=== PATIENT | male | born 1950 | race Caucasian/White ===

== ENCOUNTER 2023-04-03 04:02 | Inpatient (IN) ==
--- NOTE | 2023-04-03 06:59 | Emergency Department Note ---
History of Present Illness General Chief complaint: Dizziness Stated complaint: LIGHTHEADED Time Seen by Provider: 04/03/23 06:20 History of Present Illness 72-year-old male presents emergency department with a 1 day history of lightheadedness that started around lunchtime according to the patient. Patient states that he is lightheaded he does not state that the room is spinning he has no vertiginous symptoms he has no decrease in hearing he has no ringing in his ears does not state it worsens with movement. Patient reportedly had a headache at the time. According to family who are at bedside he was complaining that he had a headache he was lightheaded. Patient denied any chest pain shortness of breath abdominal pain nausea vomiting. Reportedly he had urinary frequency. Family had checked him last night for strokelike symptoms. Patient denies any slurred speech blurred vision. Reportedly he was having problems concentrating and thought it was 1965. This is reportedly a change according to family at bedside. He is reportedly not on blood thinners. Currently his general complaint is lightheadedness with no specificity to it Home Medications Medication Instructions Recorded Confirmed Type finasteride 5 mg tablet (Proscar) 5 mg PO QAM 03/23/21 05/18/21 History lisinopril 5 mg tablet (Zestril) 5 mg PO QAM 03/23/21 05/18/21 History metformin 750 mg tablet,extended 1,500 mg PO QAM 03/23/21 05/18/21 History release 24 hr tamsulosin 0.4 mg capsule (Flomax) 0.4 mg PO QAM 03/23/21 05/18/21 History Nexium 10 mg PO QAM 04/03/23 04/03/23 History empagliflozin 10 mg tablet 10 mg PO QAM 04/03/23 04/03/23 History (Jardiance) glipizide 5 mg tablet, extended 5 mg PO QAM 04/03/23 04/03/23 History release 24 hr Allergies Allergy/AdvReac Type Severity Reaction Status Date / Time No Known Allergies Allergy Unverified 03/23/21 13:05 Past Med/Surg History Medical History Hypertension Indwelling Daniels catheter present No pertinent family history Surgical History No pertinent past surgical history Social History Smoking Status: Never smoker Tobacco Type: Smokeless Tobacco (Dip or Chew) Preferred Language: Slovak Feels Safe at Home: Yes Review of Systems A total of 10 systems reviewed and were otherwise negative Cardiovascular: no chest pain Gastrointestinal: no abdominal pain Neurologic: + dizziness Physical Exam Vital Signs Vital Signs - 24 hr 04/03/23 04:04 04/03/23 05:02 04/03/23 05:24 Temperature 36.8 C Temperature Source Temporal Artery Scan Pulse Rate 120 H 99 H Pulse Rhythm Regular Respiratory Rate 18 20 Blood Pressure 121/73 Blood Pressure Mean 89 Pulse Oximetry 96 91 Oxygen Delivery Method Room Air Room Air Room Air Sepsis Recent Fever Within 48 Hours No Sepsis New/Unexplained Change in Mental Status No Sepsis Action Taken by Nursing No Action Required 04/03/23 06:27 04/03/23 06:29 Temperature Temperature Source Pulse Rate 99 H Pulse Rhythm Respiratory Rate Blood Pressure Blood Pressure Mean Pulse Oximetry 94 Oxygen Delivery Method Room Air Sepsis Recent Fever Within 48 Hours Sepsis New/Unexplained Change in Mental Status Sepsis Action Taken by Nursing GENERAL: Patient is awake alert in no acute distress patient is resting comfortably and showing no signs of anxiety EYES: The conjunctivae are clear. The pupils are round and reactive. Head exam reveals normocephalic atraumatic EARS, NOSE, MOUTH AND THROAT: The nose is without any evidence of any deformity. Mucous membranes are moist. Tongue is midline. NECK: The neck is nontender and supple. RESPIRATORY: Normal respiratory effort is noted there is no evidence of wheezing rhonchi or rales CARDIOVASCULAR: Regular rate and rhythm noted there no murmurs rubs or gallops normal S1 normal S2. GASTROINTESTINAL: The abdomen is soft. Abdomen is nontender. BACK: No midline tenderness or or step-off noted range of motion in flexion extension as well as rotation no signs of muscle spasm noted MUSCULOSKELETAL/EXTREMITIES: There is no evidence of gross deformity full range of motion is noted in the hips and shoulders. SKIN: There is no obvious evidence of any rash. There are no petechiae, pallor or cyanosis noted. NEUROLOGIC: Patient is awake alert and oriented x3 strength is symmetric; GCS of 15, NIH of 0; patient has normal speech and no facial droop, was ambulatory to the bathroom Course Reevaluation(s) Reevaluation #1: Patient was extremely dizzy and had an ataxic gait when he was ambulated by the nursing staff. I discussed evaluation with the patient the patient's son at bedside. The son states that the patient lives alone has a walker and a cane at home but does not use it. He believes that he would fall if he were discharged to home. Time: 10:15 Consultations Consultation #1: Case was discussed with the [facility] hospitalist for admission Time: 10:15 Administered Medications Discontinued Medications Ioversol (Optiray 320 500ml) 115 ml IV ONCE ONE Stop: 04/03/23 09:00 Last Admin: 04/03/23 08:59 Dose: 115 ml Documented By: RICKY Medical Decision Making Medical Records Attestation: I reviewed the patient's medical records. Home Medications Current Medication List: was personally reviewed by me Laboratory Data Attestation: I reviewed the patient's lab results. Labs interpreted by me are unremarkable 04/03/23 06:20 04/03/23 06:20 Lab Results 04/03/23 04/03/23 04/03/23 Range/Units 06:20 06:20 06:20 WBC 9.41 (4.8-10.8) K/ul RBC 5.82 (4.70-6.10) M/uL Hgb 16.8 (14.0-18.0) g/dl Hct 49.2 (42.0-52.0) % MCV 84.5 (80.0-100.0) fL MCH 28.9 (25.0-34.0) pg MCHC 34.1 (32.0-36.0) g/dL RDW Std Deviation 39.7 (36.4-46.3) fL RDW Coeff of Dk 12.9 (11.5-14.5) % Plt Count 237 (130-400) K/uL MPV 9.9 (9.4-12.4) fL Immature Gran % (Auto) 0.5 % Neut % (Auto) 82.5 % Lymph % (Auto) 5.2 % [place] % (Auto) 11.4 % Eos % (Auto) 0.0 % Baso % (Auto) 0.4 % Neut # (Auto) 7.76 H (1.40-6.50) K/uL Lymph # (Auto) 0.49 L (1.20-3.40) K/uL Brantley # (Auto) 1.07 H (0.11-0.59) K/uL Eos # (Auto) 0.00 (0.00-0.50) K/uL Baso # (Auto) 0.04 (0.00-0.20) K/uL Immature Gran # (Auto) 0.05 (0.01-0.20) K/uL PT (9.0-12.0) Seconds INR (0.9-1.1) Sodium 135 L (136-145) mmol/L Potassium 4.1 (3.5-5.1) mmol/L Chloride 101 (98-107) mmol/L Carbon Dioxide 25 (21-32) mmol/L Anion Gap 9 (3-11) BUN 12 (6-23) mg/dl Creatinine 1.01 (0.6-1.4) mg/dl Est Cr Clr Drug Dosing 66.6 ml/min Est GFR ( Amer) 84.5 ml/min Est GFR (Non-Af Amer) 72.9 ml/min BUN/Creatinine Ratio 11.9 (10-20) Glucose 207 H (70-99(Fasting)) mg/dl Lactate (0.4-2.0) mmol/L Calcium 9.0 (8.6-10.3) mg/dl Magnesium 1.8 (1.7-2.4) mg/dl Total Bilirubin 1.3 H (0.2-1.0) mg/dl AST 23 (13-39) U/L ALT 23 (7-52) U/L Alkaline Phosphatase 46 (34-104) U/L Troponin I High Sens (0-20) pg/ml Total Protein 6.9 (6.0-8.3) gm/dl Albumin 3.9 (3.4-5.0) gm/dl Globulin 3.0 (2.5-4.0) gm/dl Albumin/Globulin Ratio 1.3 (0.9-2) Procalcitonin 0.16 (0-0.5) ng/ml Urine Color Urine Appearance (Clear) Urine pH (4.5-7.5) Ur Specific [place] (1.000-1.030) Urine Protein (Negative) Urine Glucose (UA) (Negative) Urine Ketones (Negative) Urine Blood (Negative) Urine Nitrite (Negative) Urine Bilirubin (Negative) Urine Urobilinogen (Negative) Ur Leukocyte Esterase (Negative) Urine WBC (Auto) (0-5) /hpf Urine RBC (Auto) (0-4) /hpf U Hyaline Cast (Auto) (0-5) /lpf U Epithel Cells (Auto) (0-5) /lpf Urine Bacteria (Auto) (Negative) SARS-CoV-2, RNA, NAAT (NEGATIVE) 04/03/23 04/03/23 04/03/23 Range/Units 06:45 07:09 07:21 WBC (4.8-10.8) K/ul RBC (4.70-6.10) M/uL Hgb (14.0-18.0) g/dl Hct (42.0-52.0) % MCV (80.0-100.0) fL MCH (25.0-34.0) pg MCHC (32.0-36.0) g/dL RDW Std Deviation (36.4-46.3) fL RDW Coeff of Dk (11.5-14.5) % Plt Count (130-400) K/uL MPV (9.4-12.4) fL Immature Gran % (Auto) % Neut % (Auto) % Lymph % (Auto) % Brant[place] % (Auto) % Eos % (Auto) % Baso % (Auto) % Neut # (Auto) (1.40-6.50) K/uL Lymph # (Auto) (1.20-3.40) K/uL Br[place]ley # (Auto) (0.11-0.59) K/uL Eos # (Auto) (0.00-0.50) K/uL Baso # (Auto) (0.00-0.20) K/uL Immature Gran # (Auto) (0.01-0.20) K/uL PT 11.3 (9.0-12.0) Seconds INR 1.0 (0.9-1.1) Sodium (136-145) mmol/L Potassium (3.5-5.1) mmol/L Chloride (98-107) mmol/L Carbon Dioxide (21-32) mmol/L Anion Gap (3-11) BUN (6-23) mg/dl Creatinine (0.6-1.4) mg/dl Est Cr Clr Drug Dosing ml/min Est GFR ( Amer) ml/min Est GFR (Non-Af Amer) ml/min BUN/Creatinine Ratio (10-20) Glucose (70-99(Fasting)) mg/dl Lactate (0.4-2.0) mmol/L Calcium (8.6-10.3) mg/dl Magnesium (1.7-2.4) mg/dl Total Bilirubin (0.2-1.0) mg/dl AST (13-39) U/L ALT (7-52) U/L Alkaline Phosphatase (34-104) U/L Troponin I High Sens (0-20) pg/ml Total Protein (6.0-8.3) gm/dl Albumin (3.4-5.0) gm/dl Globulin (2.5-4.0) gm/dl Albumin/Globulin Ratio (0.9-2) Procalcitonin (0-0.5) ng/ml Urine Color Yellow Urine Appearance Clear (Clear) Urine pH 5.0 (4.5-7.5) Ur Specific [place] 1.022 (1.000-1.030) Urine Protein Trace H (Negative) Urine Glucose (UA) 2+ H (Negative) Urine Ketones 1+ H (Negative) Urine Blood Trace H (Negative) Urine Nitrite Negative (Negative) Urine Bilirubin Negative (Negative) Urine Urobilinogen Negative (Negative) Ur Leukocyte Esterase Negative (Negative) Urine WBC (Auto) 1-5 (0-5) /hpf Urine RBC (Auto) 0-4 (0-4) /hpf U Hyaline Cast (Auto) 1-5 (0-5) /lpf U Epithel Cells (Auto) 10-20 H (0-5) /lpf Urine Bacteria (Auto) Negative (Negative) SARS-CoV-2, RNA, NAAT NEGATIVE (NEGATIVE) 04/03/23 04/03/23 Range/Units 07:21 07:26 WBC (4.8-10.8) K/ul RBC (4.70-6.10) M/uL Hgb (14.0-18.0) g/dl Hct (42.0-52.0) % MCV (80.0-100.0) fL MCH (25.0-34.0) pg MCHC (32.0-36.0) g/dL RDW Std Deviation (36.4-46.3) fL RDW Coeff of Dk (11.5-14.5) % Plt Count (130-400) K/uL MPV (9.4-12.4) fL Immature Gran % (Auto) % Neut % (Auto) % Lymph % (Auto) % Br[place] % (Auto) % Eos % (Auto) % Baso % (Auto) % Neut # (Auto) (1.40-6.50) K/uL Lymph # (Auto) (1.20-3.40) K/uL [place] # (Auto) (0.11-0.59) K/uL Eos # (Auto) (0.00-0.50) K/uL Baso # (Auto) (0.00-0.20) K/uL Immature Gran # (Auto) (0.01-0.20) K/uL PT (9.0-12.0) Seconds INR (0.9-1.1) Sodium (136-145) mmol/L Potassium (3.5-5.1) mmol/L Chloride (98-107) mmol/L Carbon Dioxide (21-32) mmol/L Anion Gap (3-11) BUN (6-23) mg/dl Creatinine (0.6-1.4) mg/dl Est Cr Clr Drug Dosing ml/min Est GFR ( Amer) ml/min Est GFR (Non-Af Amer) ml/min BUN/Creatinine Ratio (10-20) Glucose (70-99(Fasting)) mg/dl Lactate 1.7 (0.4-2.0) mmol/L Calcium (8.6-10.3) mg/dl Magnesium (1.7-2.4) mg/dl Total Bilirubin (0.2-1.0) mg/dl AST (13-39) U/L ALT (7-52) U/L Alkaline Phosphatase (34-104) U/L Troponin I High Sens 4.8 (0-20) pg/ml Total Protein (6.0-8.3) gm/dl Albumin (3.4-5.0) gm/dl Globulin (2.5-4.0) gm/dl Albumin/Globulin Ratio (0.9-2) Procalcitonin (0-0.5) ng/ml Urine Color Urine Appearance (Clear) Urine pH (4.5-7.5) Ur Specific [place] (1.000-1.030) Urine Protein (Negative) Urine Glucose (UA) (Negative) Urine Ketones (Negative) Urine Blood (Negative) Urine Nitrite (Negative) Urine Bilirubin (Negative) Urine Urobilinogen (Negative) Ur Leukocyte Esterase (Negative) Urine WBC (Auto) (0-5) /hpf Urine RBC (Auto) (0-4) /hpf U Hyaline Cast (Auto) (0-5) /lpf U Epithel Cells (Auto) (0-5) /lpf Urine Bacteria (Auto) (Negative) SARS-CoV-2, RNA, NAAT (NEGATIVE) Imaging Data Attestation: I personally reviewed and interpreted this imaging study as fol lows: My Impression: Chest x-ray interpreted by me negative for infiltrate Radiologist's Impression: Chest X-Ray 04/03/23 06:22 XR chest 1V portable CLINICAL HISTORY: Sepsis. COMPARISON STUDY: Chest radiograph March 23, 2021. FINDINGS: There is no pneumothorax or pleural effusion. Moderate cardiomegaly is unchanged. There is pulmonary vascular congestion without overt pulmonary edema. There is no consolidation to suggest pneumonia. IMPRESSION: Cardiomegaly with pulmonary vascular congestion. ACT 112: Negative or not required by law. Electronically signed by: Antonio Her M.D. 04/03/2023 7:[address] 04/03/23 06:22 CT OF THE HEAD WITHOUT CONTRAST CLINICAL HISTORY: Altered mental status. COMPARISON STUDY: Head CT January 05, 2021. TECHNIQUE: Helical axial images of the head were obtained without IV contrast. Automated exposure control was utilized for the study. A dose lowering technique was utilized adhering to the principles of ALARA. FINDINGS: No acute intracranial hemorrhage, midline shift or mass effect is present. The ventricular system is unremarkable. The basal cisterns are patent. No extra-axial collections are present. There are no findings to suggest acute dural sinus thrombosis or acute territorial infarct. No significant calvarial abnormalities are present. Visualized portions of the sinuses and mastoid air cells are clear. IMPRESSION: No acute intracranial findings. No change in appearance of the brain. ACT 112: Negative or not required by law. Electronically signed by: Antonio Her M.D. 04/03/2023 9:29 AM Head CTA 04/03/23 06:48 CTA ANGIOGRAPHY OF THE HEAD CLINICAL HISTORY: Lightheadedness. Dizziness. Possible stroke. COMPARISON STUDY: Head CT January 05, 2021. TECHNIQUE: Helical axial images of the head were obtained following uneventful intravenous administration of 115 cc of Optiray. Sagittal and coronal reconstructions were viewed as well as maximal intensity projections on an independent 3-D workstation. Automated exposure control was utilized for the study. A dose lowering technique was utilized adhering to the principles of ALARA. CT DOSE: 1465.5 mGy.cm FINDINGS: No acute intracranial hemorrhage is identified on the head CT which will be reported separately. The ventricular system is stable. Basal cisterns are patent. There are no extra-axial collections. The bilateral M1, M2, A1 and A2 segments are patent. The posterior circulation is also intact. There is no intracranial aneurysm or dissection. IMPRESSION: Unremarkable CTA of the head. ACT 112: Negative or not required by law. Electronically signed by: Antonio Her M.D. 04/03/2023 9:35 AM Neck CTA 04/03/23 06:48 CT angio neck with con CLINICAL HISTORY: 72 years-old Male with stroke. Acute strokelike symptoms COMPARISON STUDY: CTA head of same day TECHNIQUE: Following the IV administration of 115 cc of Optiray, CT angiogram of the neck was performed from the aortic arch to the skull base. Images are reviewed in the axial, sagittal, and coronal planes. 3-D MIPS images are created and assessed. IV contrast was administered without complication. All measurements were calculated based on NASCET criteria. A dose lowering technique was utilized adhering to the principles of ALARA. FINDINGS: Unremarkable appearance of the imaged thoracic aortic arch. Patency of the innominate and imaged subclavian arteries. Patent common and internal carotid arteries without significant atherosclerosis. The vertebral arteries are codominant and widely patent. No aneurysm, dissection, high-grade stenosis or arterial occlusion. The imaged intracranial structures demonstrate no acute abnormality. Soft tissues are within normal limits. 1.3 cm groundglass nodule of the right upper lobe on image 7 series 8. No pneumothorax. Degenerative changes of the cervical spine. No acute fracture. IMPRESSION: 1. Unremarkable CTA of the neck. 2. 1.3 cm right upper lobe groundglass nodule. Six-month follow-up chest CT recommended. Please refer to below summary of Fleischner criteria recommendations for follow- up of incidental CT nodules (Rosa M Vicente, Guidelines for management of small pulmonary nodules detected on CT scans: A statement from the Fleischner Society, Radiology 237: [phone].) Note: newly detected indeterminate nodule in persons 35 years of age or older. * Low risk patients: minimal or absent history of smoking and/or other known r isk factors * high risk patients: history of smoking or of other known risk factors (e.g. first degree relative with lung cancer, or exposure to asbestos, radon, uranium) * if a nodule up to 8 mm is partly solid or is ground glass further follow-up is required after 24 months to exclude possible slow growing adenocarcinoma (MALIKA) SUBSOLID NODULES Solitary pure ground-glass nodule * nodule size <6 mm - no CT follow-up required * nodule size >=6 mm - follow-up CT at 6-12 months, then every 2 years until 5 years * ACT 112: Positive. There are findings on this exam that require communication between the performing entity and the patient following Patient Test Result Information Act ([place] Act 112) guidelines. The above report was generated using voice recognition software. It may contain grammatical, syntax or spelling errors. Electronically signed by: Fawad Barajas M.D. 04/03/2023 9:28 AM ECG Data Attestation: I personally reviewed and interpreted this ECG as follows: Additional Comments: EKG interpreted by me sinus rhythm rate of 100, PACs, no obvious ST segment elevation or depression, normal axis, normal intervals Telemetry was ordered by me, interpreted as normal sinus rhythm rate of 98 MDM Narrative Medical decision making differential diagnosis includes TIA, CVA, intracranial hemorrhage, metabolic derangement, dehydration, cardiac dysrhythmia, urinary tract infection, sepsis Plan is to check labs, EKG, CT angios of the brain and neck Patient's son is at bedside and provided me medical history as to his complaint yesterday of dizziness and headache and being off balance at times Patient is currently ataxic on ambulation trial. Case was discussed with the son, the case was discussed with the [facility] hospitalist for admission Impression & Plan Dizziness Discharge Plan Visit Data Chief Complaint: Dizziness Stated Complaint: LIGHTHEADED ED Provider: Jarek Birch Discharge Problem: Dizziness Patient Disposition: Admitted As Inpatient Forms Stand Alone Forms: My [facility] Prescriptions Prescriptions: No Action tamsulosin [Flomax] 0.4 mg capsule 0.4 mg PO QAM glimepiride [Amaryl] 4 mg tablet 4 mg PO QAM lisinopril [Zestril] 5 mg tablet 5 mg PO QAM finasteride [Proscar] 5 mg tablet 5 mg PO QAM metformin 750 mg tablet extended release 24 hr 1,500 mg PO QAM Referrals Referrals: Alberto Sheets MD [Primary Care Provider] -
[2023-04-03 07:02] LABS: Albumin Globulin Ratio 1.3 (0.9-2); Albumin Level 3.9 gm/dl (3.4-5.0); BUN Creatinine Ratio 11.9 (10-20); Bilirubin,Total 1.3 mg/dl (0.2-1.0); Creatinine Clr Calc Pharmacy 66.6 ml/min; Est GFR (African American) 84.5 ml/min; Est GFR (Non-African American) 72.9 ml/min; Magnesium 1.8 mg/dl (1.7-2.4); Potassium 4.1 mmol/L (3.5-5.1); Total Protein 6.9 gm/dl (6.0-8.3)
--- NOTE | 2023-04-03 07:07 | XRay Report ---
XR chest 1V portable CLINICAL HISTORY: Sepsis. COMPARISON STUDY: Chest radiograph March 23, 2021. FINDINGS: There is no pneumothorax or pleural effusion. Moderate cardiomegaly is unchanged. There is pulmonary vascular congestion without overt pulmonary edema. There is no consolidation to suggest pne umonia. IMPRESSION: Cardiomegaly with pulmonary vascular congestion. ACT 112: Negative or not required by law. Electronically signed by: Antonio Her M.D. 04/03/2023 7:06 AM
[2023-04-03 08:12] LABS: Basophils # (auto) 0.04 K/uL (0.00-0.20); Basophils % (auto) 0.4 %; Hematocrit (blood only) 49.2 % (42.0-52.0); Hemoglobin 16.8 g/dl (14.0-18.0); Immature Granulocytes # (auto) 0.05 K/uL (0.01-0.20); Immature Granulocytes % (auto) 0.5 %; Lymphocytes # (auto) 0.49 K/uL (1.20-3.40); Lymphocytes % (auto) 5.2 %; Mean Corpuscular Hemoglobin 28.9 pg (25.0-34.0); Mean Corpuscular Hgb Conc 34.1 g/dL (32.0-36.0); Mean Corpuscular Volume 84.5 fL (80.0-100.0); Mean Platelet Volume 9.9 fL (9.4-12.4); Monocytes # (auto) 1.07 K/uL (0.11-0.59); Monocytes % (auto) 11.4 %; Neutrophils # (auto) 7.76 K/uL (1.40-6.50); Neutrophils % (auto) 82.5 %; Platelet Count 237 K/uL (130-400); RDW Coefficient of Variation 12.9 % (11.5-14.5); RDW Standard Deviation 39.7 fL (36.4-46.3); Red Blood Count 5.82 M/uL (4.70-6.10); White Blood Count 9.41 K/ul (4.8-10.8)
[2023-04-03 08:14] LABS: Prothrombin Time 11.3 Seconds (9.0-12.0)
[2023-04-03 08:49] LABS: Appearance Urine Clear (Clear); Bacteria Urine Automated Negative (Negative); Bilirubin Urine Negative (Negative); Blood Urine Trace (Negative); Color Urine Yellow; Glucose Urine UA 2+ (Negative); Ketones Urine 1+ (Negative); Leukocyte Esterase Urine Negative (Negative); Nitrite Urine Negative (Negative); Protein Urine Trace (Negative); RBC Urine Automated 0-4 /hpf (0-4); Specific Gravity Urine 1.022 (1.000-1.030); Urobilinogen Urine Negative (Negative)
[2023-04-03] MEDS ORDERED: OPTIRAY 320 500ml IV ONE (08:59)
--- NOTE | 2023-04-03 09:30 | CT Scan Report ---
CT angio neck with con CLINICAL HISTORY: 72 years-old Male with stroke. Acute strokelike symptoms COMPARISON STUDY: CTA head of same day TECHNIQUE: Following the IV administration of 115 cc of Optiray, CT angiogram of the neck was perform ed from the aortic arch to the skull base. Images are reviewed in the axial, sagittal, and coronal pl anes. 3-D MIPS images are created and assessed. IV contrast was administered without complication. Al l measurements were calculated based on NASCET criteria. A dose lowering technique was utilized adhe ring to the principles of ALARA. FINDINGS: Unremarkable appearance of the imaged thoracic aortic arch. Patency of the innominate and imaged subc lavian arteries. Patent common and internal carotid arteries without significant atherosclerosis. The vertebral arteries are codominant and widely patent. No aneurysm, dissection, high-grade stenosis or arterial occlusion. The imaged intracranial structures demonstrate no acute abnormality. Soft tissues are within normal l imits. 1.3 cm groundglass nodule of the right upper lobe on image 7 series 8. No pneumothorax. Degene rative changes of the cervical spine. No acute fracture. IMPRESSION: 1. Unremarkable CTA of the neck. 2. 1.3 cm right upper lobe groundglass nodule. Six-month follow-up chest CT recommended. Please refer to below summary of Fleischner criteria recommendations for follow-up of incidental CT n odules (Rosa M Vicente, Guidelines for management of small pulmonary nodules detected on CT scans: A sta tement from the Fleischner Society, Radiology 237: [phone].) Note: newly detected indeterminate nodule in persons 35 years of age or older. * Low risk patients: minimal or absent history of smoking and/or other known risk factors * high risk patients: history of smoking or of other known risk factors (e.g. first degree relative with lung cancer, or exposure to asbestos, radon, uranium) * if a nodule up to 8 mm is partly solid or is ground glass further follow-up is required after 24 m onths to exclude possible slow growing adenocarcinoma (MALIKA) SUBSOLID NODULES Solitary pure ground-glass nodule * nodule size <6 mm - no CT follow-up required * nodule size >=6 mm - follow-up CT at 6-12 months, then every 2 years until 5 years * ACT 112: Positive. There are findings on this exam that require communication between the performing entity and the patient following Patient Test Result Information Act ([place] Act 112) guidelines. The above report was generated using voice recognition software. It may contain grammatical, syntax o r spelling errors. Electronically signed by: Fawad Barajas M.D. 04/03/2023 9:28 AM
--- NOTE | 2023-04-03 09:30 | CT Scan Report ---
CT OF THE HEAD WITHOUT CONTRAST CLINICAL HISTORY: Altered mental status. COMPARISON STUDY: Head CT January 05, 2021. TECHNIQUE: Helical axial images of the head were obtained without IV contrast. Automated exposure con trol was utilized for the study. A dose lowering technique was utilized adhering to the principles o f ALARA. FINDINGS: No acute intracranial hemorrhage, midline shift or mass effect is present. The ventricular system is unremarkable. The basal cisterns are patent. No extra-axial collections are present. There are no findings to suggest acute dural sinus thrombosis or acute territorial infarct. No significant calvarial abnormalities are present. Visualized portions of the sinuses and mastoid air cells are shilpi ar. IMPRESSION: No acute intracranial findings. No change in appearance of the brain. ACT 112: Negative or not required by law. Electronically signed by: Antonio Her M.D. 04/03/2023 9:29 AM
--- NOTE | 2023-04-03 09:37 | CT Scan Report ---
CTA ANGIOGRAPHY OF THE HEAD CLINICAL HISTORY: Lightheadedness. Dizziness. Possible stroke. COMPARISON STUDY: Head CT January 05, 2021. TECHNIQUE: Helical axial images of the head were obtained following uneventful intravenous administr ation of 115 cc of Optiray. Sagittal and coronal reconstructions were viewed as well as maximal inten sity projections on an independent 3-D workstation. Automated exposure control was utilized for the study. A dose lowering technique was utilized adhering to the principles of ALARA. CT DOSE: 1465.5 mGy.cm FINDINGS: No acute intracranial hemorrhage is identified on the head CT which will be reported separa tely. The ventricular system is stable. Basal cisterns are patent. There are no extra-axial collectio ns. The bilateral M1, M2, A1 and A2 segments are patent. The posterior circulation is also intact. Th ere is no intracranial aneurysm or dissection. IMPRESSION: Unremarkable CTA of the head. ACT 112: Negative or not required by law. Electronically signed by: Antonio Her M.D. 04/03/2023 9:35 AM
--- NOTE | 2023-04-03 10:19 | History & Physical Report ---
Date of Service April 03, 2023 Assessment & Plan (1) Dizziness: Plan: -Admit to [facility] with telemetry -Stroke order set completed although not sure that this is truly a CVA at this point. It is difficult to determine due to the patient's known forthcoming demeanor if he has had progressive weakness, unsteady gait going on for longer timeframe than just yesterday. - CTA head and neck, CT head neg - Check MRI brain - Check 2D echo - Initial troponin is negative, trend one more set - Neurocognitive evaluation throughout admission with pt possible worsening memory? Speeding with driving may indicate the need to revoke license. CM to assist with dc planning and if high school social studies teacher need to be involved upon discharge to home/home health services vs. inpatient placement - PT/OT evals - A1C and lipids with am labs for completeness - Hold on addition of baby aspirin and statin per attending at this time pending MRI results (2) GERD (gastroesophageal reflux disease): Plan: - Chronic, stable - Continue PPI (3) DM II (diabetes mellitus, type II), controlled: Plan: - ISS with Accu-Cheks ACHS - Check A1c - Question if the patient is truly taking Jardiance at home per medications, he is taking 1500 mg metformin in the morning which we will hold for now with receiving contrast - Trend glucose (4) BPH (benign prostatic hyperplasia): Plan: - Hx of TURP, may continue Flomax and Proscar DVT PPx: teds, scds Lines: 2 PIV FEN/GI: Passed bedside swallow eval by myself, allow HH/diabetic diet CODE: Full code Dispo: From home, likely to remain in the hospital x 1-2 days History of Present Illness Chief Complaint: Lightheadedness Primary Care Provider: Alberto Sheets MD This is a 72-year-old male with PMHx of DM type II, HTN, GERD, TURP and BPH who presents to the ER with 1 day of lightheadedness. Pt son is at bedside and supports the history as the patient is not forthcoming with what's going on at home, son is concerned he is unable to care for himself at this point and there are memory changes. Pt thinks lightheadedness started around lunch time yesterday, and hit him all of a sudden but cannot recall what he was doing. Denies any presyncopal symptoms, and feels that since yesterday this lightheadedness has been on and off, admits to a headache as well in the frontal left region for 10-20 min yesterday but is gone at this point. Denies any changes in speech, slurring. He typically uses a cane and a walker at baseline however has been significantly unsteady at home. He lives by himself. Family is concerned that he would be unsafe going home. Son who is at bedside also reports that his sister obtains her information from the patient's girlfriend who lives with him, and there is concerned that he has had issues with driving, speeding upwards of 100 mph without realizing it at times, does not know all of his medications, has multiple bottles of pills at home, reports that he has not taken Jardiance however it was prescribed in December earlier this year. Will ask case management to offer services for when the patient is discharged versus going to rehab versus permanent placement. CT of the head, CTA head and neck are negative for strokelike findings. Family Hx: Mother - cancer, Father - Gastrointestinal disorder Social Hx: Patient initially denies tobacco use however son reminds him that he chews tobacco, patient admits to chewing 1 can of snuff daily. Denies alcohol use, denies illicit drug use. Allergies Allergy/AdvReac Type Severity Reaction Status Date / Time No Known Allergies Allergy Unverified 03/23/21 13:05 Home Medications Medication Instructions Recorded Confirmed Type finasteride 5 mg tablet (Proscar) 5 mg PO QAM 03/23/21 04/03/23 History lisinopril 5 mg tablet (Zestril) 10 mg PO QAM 03/23/21 04/03/23 History metformin 750 mg tablet,extended 1,500 mg PO QAM 03/23/21 04/03/23 History release 24 hr tamsulosin 0.4 mg capsule (Flomax) 0.4 mg PO QAM 03/23/21 04/03/23 History Nexium 10 mg PO QAM 04/03/23 04/03/23 History empagliflozin 10 mg tablet 10 mg PO QAM 04/03/23 04/03/23 History (Jardiance) glipizide 5 mg tablet, extended 5 mg PO QAM 04/03/23 04/03/23 History release 24 hr Past Med/Surg History Medical History (Updated 04/03/23 @ 10:18 by Aviva Castle PA-C) BPH (benign prostatic hyperplasia) DM II (diabetes mellitus, type II), controlled GERD (gastroesophageal reflux disease) Hypertension Indwelling Daniels catheter present No pertinent family history Surgical History (Updated 04/03/23 @ 10:18 by Aviva Castle PA-C) Hx of transurethral resection of prostate Family History (Updated 04/03/23 @ 10:18 by Aviva Castle PA-C) Mother Cancer Social History Smoking Status: Never smoker Tobacco Type: Smokeless Tobacco (Dip or Chew) Preferred Language: Frisian Feels Safe at Home: Yes Review of Systems Review of Systems: Constitutional: No fever, sweats or chills Eyes: No diplopia, no worsening or blurred vision ENT: normal hearing, no trouble swallowing Respiratory: No cough, sputum, dyspnea at rest or on exertion Cardiovascular: No chest pain, tightness or palpitations Abdomen: No pain, nausea, vomiting, diarrhea or constipation Musculoskeletal: No joint pain, calf pain, swelling Neurologic: + lightheadedness as per HPI, + unsteady gait, + uses a walker at baseline, denies weakness, numbness/tingling, Psychiatric: No anxiety or depression Skin: No rash or itch Physical Exam Physical Exam: General: awake, alert, no apparent distress, obese, white male Head: Normocephalic, atraumatic ENT: PERRL, EOMI, no pharyngeal exudate, mucous membranes moist Extremities: Normal inspection, no peripheral edema or erythema, calfs nontender to palpation Psych: Normal mood and affect, + not forthcoming with information at times but pleasant, Please refer to attending addendum for complete physical exam including neurocognitive exam. Results & Data Results & Data Vital Signs (Past 12 Hours) Vital Signs Temp Pulse Resp BP Pulse Ox O2 Del Method 04/03/23 06:29 99 H 04/03/23 06:27 94 Room Air 04/03/23 05:24 99 H 20 91 Room Air 04/03/23 05:02 Room Air 04/03/23 04:04 36.8 C 120 H 18 121/73 96 Room Air Laboratory Results 04/03/23 07:21 Aerobic Blood Culture - Pending Blood Anaerobic Blood Culture - Pending 04/03/23 07:27 Aerobic Blood Culture - Pending Blood Anaerobic Blood Culture - Pending 04/03/23 04/03/23 04/03/23 07:26 07:21 07:21 WBC RBC Hgb Hct MCV MCH MCHC RDW Std Deviation RDW Coeff of Dk Plt Count MPV Immature Gran % (Auto) Neut % (Auto) Lymph % (Auto) [place] % (Auto) Eos % (Auto) Baso % (Auto) Neut # (Auto) Lymph # (Auto) [place] # (Auto) Eos # (Auto) Baso # (Auto) Immature Gran # (Auto) PT 11.3 INR 1.0 Sodium Potassium Chloride Carbon Dioxide Anion Gap BUN Creatinine Est Cr Clr Drug Dosing Est GFR ( Amer) Est GFR (Non-Af Amer) BUN/Creatinine Ratio Glucose Lactate 1.7 Calcium Magnesium Total Bilirubin AST ALT Alkaline Phosphatase Troponin I High Sens 4.8 Total Protein Albumin Globulin Albumin/Globulin Ratio Procalcitonin Urine Color Urine Appearance Urine pH Ur Specific [place] Urine Protein Urine Glucose (UA) Urine Ketones Urine Blood Urine Nitrite Urine Bilirubin Urine Urobilinogen Ur Leukocyte Esterase Urine WBC (Auto) Urine RBC (Auto) U Hyaline Cast (Auto) U Epithel Cells (Auto) Urine Bacteria (Auto) SARS-CoV-2, RNA, NAAT 04/03/23 04/03/23 04/03/23 07:09 06:45 06:20 WBC RBC Hgb Hct MCV MCH MCHC RDW Std Deviation RDW Coeff of Dk Plt Count MPV Immature Gran % (Auto) Neut % (Auto) Lymph % (Auto) [place] % (Auto) Eos % (Auto) Baso % (Auto) Neut # (Auto) Lymph # (Auto) [place] # (Auto) Eos # (Auto) Baso # (Auto) Immature Gran # (Auto) PT INR Sodium Potassium Chloride Carbon Dioxide Anion Gap BUN Creatinine Est Cr Clr Drug Dosing Est GFR ( Amer) Est GFR (Non-Af Amer) BUN/Creatinine Ratio Glucose Lactate Calcium Magnesium Total Bilirubin AST ALT Alkaline Phosphatase Troponin I High Sens Total Protein Albumin Globulin Albumin/Globulin Ratio Procalcitonin 0.16 Urine Color Yellow Urine Appearance Clear Urine pH 5.0 Ur Specific [place] 1.022 Urine Protein Trace H Urine Glucose (UA) 2+ H Urine Ketones 1+ H Urine Blood Trace H Urine Nitrite Negative Urine Bilirubin Negative Urine Urobilinogen Negative Ur Leukocyte Esterase Negative Urine WBC (Auto) 1-5 Urine RBC (Auto) 0-4 U Hyaline Cast (Auto) 1-5 U Epithel Cells (Auto) 10-20 H Urine Bacteria (Auto) Negative SARS-CoV-2, RNA, NAAT NEGATIVE 04/03/23 04/03/23 06:20 06:20 WBC 9.41 RBC 5.82 Hgb 16.8 Hct 49.2 MCV 84.5 MCH 28.9 MCHC 34.1 RDW Std Deviation 39.7 RDW Coeff of Dk 12.9 Plt Count 237 MPV 9.9 Immature Gran % (Auto) 0.5 Neut % (Auto) 82.5 Lymph % (Auto) 5.2 [place] % (Auto) 11.4 Eos % (Auto) 0.0 Baso % (Auto) 0.4 Neut # (Auto) 7.76 H Lymph # (Auto) 0.49 L [place] # (Auto) 1.07 H Eos # (Auto) 0.00 Baso # (Auto) 0.04 Immature Gran # (Auto) 0.05 PT INR Sodium 135 L Potassium 4.1 Chloride 101 Carbon Dioxide 25 Anion Gap 9 BUN 12 Creatinine 1.01 Est Cr Clr Drug Dosing 66.6 Est GFR ( Amer) 84.5 Est GFR (Non-Af Amer) 72.9 BUN/Creatinine Ratio 11.9 Glucose 207 H Lactate Calcium 9.0 Magnesium 1.8 Total Bilirubin 1.3 H AST 23 ALT 23 Alkaline Phosphatase 46 Troponin I High Sens Total Protein 6.9 Albumin 3.9 Globulin 3.0 Albumin/Globulin Ratio 1.3 Procalcitonin Urine Color Urine Appearance Urine pH Ur Specific [place] Urine Protein Urine Glucose (UA) Urine Ketones Urine Blood Urine Nitrite Urine Bilirubin Urine Urobilinogen Ur Leukocyte Esterase Urine WBC (Auto) Urine RBC (Auto) U Hyaline Cast (Auto) U Epithel Cells (Auto) Urine Bacteria (Auto) SARS-CoV-2, RNA, NAAT Diagnostic Findings Chest X-Ray 04/03/23 06:22 XR chest 1V portable CLINICAL HISTORY: Sepsis. COMPARISON STUDY: Chest radiograph March 23, 2021. FINDINGS: There is no pneumothorax or pleural effusion. Moderate cardiomegaly is unchanged. There is pulmonary vascular congestion without overt pulmonary edema. There is no consolidation to suggest pneumonia. IMPRESSION: Cardiomegaly with pulmonary vascular congestion. ACT 112: Negative or not required by law. Electronically signed by: Antonio Her M.D. 04/03/2023 7:[address] 04/03/23 06:22 CT OF THE HEAD WITHOUT CONTRAST CLINICAL HISTORY: Altered mental status. COMPARISON STUDY: Head CT January 05, 2021. TECHNIQUE: Helical axial images of the head were obtained without IV contrast. Automated exposure control was utilized for the study. A dose lowering technique was utilized adhering to the principles of ALARA. FINDINGS: No acute intracranial hemorrhage, midline shift or mass effect is present. The ventricular system is unremarkable. The basal cisterns are patent. No extra-axial collections are present. There are no findings to suggest acute dural sinus thrombosis or acute territorial infarct. No significant calvarial abnormalities are present. Visualized portions of the sinuses and mastoid air cells are clear. IMPRESSION: No acute intracranial findings. No change in appearance of the brain. ACT 112: Negative or not required by law. Electronically signed by: Antonio Her M.D. 04/03/2023 9:29 AM Head CTA 04/03/23 06:48 CTA ANGIOGRAPHY OF THE HEAD CLINICAL HISTORY: Lightheadedness. Dizziness. Possible stroke. COMPARISON STUDY: Head CT January 05, 2021. TECHNIQUE: Helical axial images of the head were obtained following uneventful intravenous administration of 115 cc of Optiray. Sagittal and coronal reconstructions were viewed as well as maximal intensity projections on an independent 3-D workstation. Automated exposure control was utilized for the study. A dose lowering technique was utilized adhering to the principles of ALARA. CT DOSE: 1465.5 mGy.cm FINDINGS: No acute intracranial hemorrhage is identified on the head CT which will be reported separately. The ventricular system is stable. Basal cisterns are patent. There are no extra-axial collections. The bilateral M1, M2, A1 and A2 segments are patent. The posterior circulation is also intact. There is no intracranial aneurysm or dissection. IMPRESSION: Unremarkable CTA of the head. ACT 112: Negative or not required by law. Electronically signed by: Antonio Her M.D. 04/03/2023 9:35 AM Neck CTA 04/03/23 06:48 CT angio neck with con CLINICAL HISTORY: 72 years-old Male with stroke. Acute strokelike symptoms COMPARISON STUDY: CTA head of same day TECHNIQUE: Following the IV administration of 115 cc of Optiray, CT angiogram of the neck was performed from the aortic arch to the skull base. Images are reviewed in the axial, sagittal, and coronal planes. 3-D MIPS images are created and assessed. IV contrast was administered without complication. All measurements were calculated based on NASCET criteria. A dose lowering technique was utilized adhering to the principles of ALARA. FINDINGS: Unremarkable appearance of the imaged thoracic aortic arch. Patency of the innominate and imaged subclavian arteries. Patent common and internal carotid arteries without significant atherosclerosis. The vertebral arteries are codominant and widely patent. No aneurysm, dissection, high-grade stenosis or arterial occlusion. The imaged intracranial structures demonstrate no acute abnormality. Soft tissues are within normal limits. 1.3 cm groundglass nodule of the right upper lobe on image 7 series 8. No pneumothorax. Degenerative changes of the cervical spine. No acute fracture. IMPRESSION: 1. Unremarkable CTA of the neck. 2. 1.3 cm right upper lobe groundglass nodule. Six-month follow-up chest CT recommended. Please refer to below summary of Fleischner criteria recommendations for follow- up of incidental CT nodules (Rosa M Vicente, Guidelines for management of small pulmonary nodules detected on CT scans: A statement from the Fleischner Society, Radiology 237: [phone].) Note: newly detected indeterminate nodule in persons 35 years of age or older. * Low risk patients: minimal or absent history of smoking and/or other known risk factors * high risk patients: history of smoking or of other known risk factors (e.g. first degree relative with lung cancer, or exposure to asbestos, radon, uranium) * if a nodule up to 8 mm is partly solid or is ground glass further follow-up is required after 24 months to exclude possible slow growing adenocarcinoma (MALIKA) SUBSOLID NODULES Solitary pure ground-glass nodule * nodule size <6 mm - no CT follow-up required * nodule size >=6 mm - follow-up CT at 6-12 months, then every 2 years until 5 years * ACT 112: Positive. There are findings on this exam that require communication between the performing entity and the patient following Patient Test Result Information Act ([place] Act 112) guidelines. The above report was generated using voice recognition software. It may contain grammatical, syntax or spelling errors. Electronically signed by: Fawad Barajas M.D. 04/03/2023 9:28 AM ECG Additional Comments: 03-APR-2023 06:15:17 [facility]-EDSTAT ROUTINE RETRIEVAL Sinus rhythm with Premature atrial complexes Possible Anterior infarct (cited on or before 03-APR-2023) Abnormal ECG When compared with ECG of 23-MAR-2021 12:19, Premature atrial complexes are now Present 25mm/s10mm/[id number] 243CID: 21Unconfirmed Vent. rate 100 BPM VT interval 192 ms QRS duration 74 ms QT/QTc 324/417 ms Code Status & VTE Plan Code Status Full code-discussed with the patient at bedside Supervising Physician Co-Signing Physician Notes 72-year-old male with PMHx of DM type II, HTN, GERD, TURP and BPH who presents to the ER with 1 day of lightheadedness Patient is not very forthcoming with history. Reported this started yesterday after lunch and has persisted. Denied any LOC/fall Denied any focal deficits in speech/power/sensation. Son concerned about patient's cognition over the past few months as well as exertional dyspnea On exam, General: Elderly man in no distress, obese Eyes: PERRL, conjunctivae normal, not pale, anicteric sclerae, EOM intact bilaterally ENMT: External ear and nose normal, oropharynx normal Respiratory: Normal respiratory effort, no respiratory distress, lungs clear to auscultation, no crackles and no wheezes Cardiovascular: RRR S1 S2 Gastrointestinal (Abdomen): Abdomen is not distended, soft, non-tender to palpation, no guarding, no palpable hepatosplenomegaly, normal bowel sounds Musculoskeletal: No pedal edema Genitourinary: No CVA tenderness Neurologic: Alert and oriented x 3, Power is equal in all extremities, No sensory deficits noted Psychiatric: Euthymic affect CT head did not show any acute abnormalities CTA head did not show any acute abnormalities CTA neck noted 1.3cm RUL groundglass nodule, otherwise unremarkable Will get CT chest for better evaluation of nodule Get MRI brain to rule out infarct Son concerned for cognitive impairment. There may be concerns about bad driving habits. housing assistant property manager consulted to assess further and assess discharge needs Will need neuropsych eval outpatient for possible cognitive impairment. PT/OT eval Orthostatic vitals
--- NOTE | 2023-04-03 13:22 | CT Scan Report ---
CT chest diagnostic wo con CT DOSE: 670.51 mGy.cm CLINICAL HISTORY: 72 years-old Male with eval nodule. Right upper lobe pulmonary nodule. TECHNIQUE: Multiaxial CT images of the chest were performed without contrast. A dose lowering techni que was utilized adhering to the principles of ALARA. COMPARISON: CTA neck of same day. FINDINGS: Unremarkable thyroid. Mild cardiomegaly with small pericardial effusion. Mild coronary anton ry calcifications. No thoracic aortic aneurysm. There is no lymphadenopathy. No pneumothorax, pleural effusion or overt pulmonary edema. Mild subsegmental bibasilar atelectasis. 1.3 x 0.9 cm subsolid linear nodule of the right upper lobe redemonstrated. This is best seen on the coronal series. Central airways are patent. No additional pulmonary nodule. No acute process of the imaged upper abdomen. Hepatic steatosis. Unremarkable soft tissues. No acute fracture. IMPRESSION: 1. No acute intrathoracic abnormality. 2. 1.3 cm subsolid right upper lobe nodule again noted. As previously outlined, this nodule requires outpatient follow-up. 3. No lymphadenopathy. 4. Hepatic steatosis. Please refer to below summary of Fleischner criteria recommendations for follow-up of incidental CT n odules (Rosa M Vicente, Guidelines for management of small pulmonary nodules detected on CT scans: A sta tement from the Fleischner Society, Radiology 237: [phone].) Note: newly detected indeterminate nodule in persons 35 years of age or older. * Low risk patients: minimal or absent history of smoking and/or other known risk factors * high risk patients: history of smoking or of other known risk factors (e.g. first degree relative with lung cancer, or exposure to asbestos, radon, uranium) * if a nodule up to 8 mm is partly solid or is ground glass further follow-up is required after 24 m onths to exclude possible slow growing adenocarcinoma (MALIKA) SUBSOLID NODULES Solitary pure ground-glass nodule * nodule size <6 mm - no CT follow-up required * nodule size >=6 mm - follow-up CT at 6-12 months, then every 2 years until 5 years The above report was generated using voice recognition software. It may contain grammatical, syntax o r spelling errors. ACT 112: Negative or not required by law. Dictated: 04/03/2023 12:25 PM Transcribed: 04/03/2023 12:47 PM Alimta [id number] [email or web address] [id number] Electronically signed by: Fawad Barajas M.D. 04/03/2023 1:21 PM
--- NOTE | 2023-04-03 13:33 | Magnetic Resonance Report ---
MR brain wo con HISTORY: 72 years-old Male lightheadedness, concern for cva acute strokelike symptoms COMPARISON: Head CT of same day TECHNIQUE: Multiplanar multisequence MRI of the brain was obtained without the use of IV contrast FINDINGS: No restricted diffusion. Midline structures appear unremarkable. Degenerative changes of the cervical spine. No acute intracranial hemorrhage, midline shift, abnormal extra-axial collection, hydrocephal us or intra-axial mass. No pathologic blooming artifact. Delusional changes with unchanged ventriculo megaly, likely on ex vacuo basis. Mild to moderate T2/FLAIR hyperintense foci throughout the white ma tter, likely secondary to chronic microvascular ischemic disease. Cerebral venous sinuses and major arterial flow voids appear patent. Skull, orbits and soft tissues a re unremarkable. IMPRESSION: 1. No acute intracranial abnormality. No acute or subacute infarct. 2. Involutional changes with mild to moderate chronic microvascular ischemic disease. ACT 112: Negative or not required by law. The above report was generated using voice recognition software. It may contain grammatical, syntax o r spelling errors. Electronically signed by: Fawad Barajas M.D. 04/03/2023 1:31 PM
[2023-04-03] MEDS ORDERED: GLUCAGON FOR INJ 1 MG VIAL SQ PRN (14:17)
[2023-04-03] MEDS ORDERED: DEXTROSE 50% 50 ML SYRINGE IV PRN (14:17)
[2023-04-03] MEDS ORDERED: GLUCOSE 10 TAB/TUBE PO PRN (14:17)
[2023-04-03] MEDS ORDERED: GLUCOSE 40% GEL 15 GM TUBE PO PRN (14:17)
[2023-04-03] MEDS ORDERED: CARBOHYDRATES FOR HYPOGLYCEMIA PO PRN (14:17)
[2023-04-03] MEDS ORDERED: ONDANSETRON INJ 2 MG/ML 2 ML VIAL IV PRN (14:17)
[2023-04-03] MEDS ORDERED: PHARMACIST DISCHARGE MED REC CONSULT PRN (14:17)
[2023-04-03] MEDS: FINASTERIDE 5 MG TAB PO SCH (15:49)
[2023-04-03] MEDS: TAMSULOSIN HCL 0.4 MG CAP PO SCH (15:50)
[2023-04-03] MEDS: NICOTINE 21 MG/24 HR TDSY TD SCH (15:51)
[2023-04-03] MEDS: INSULIN ASPART PER UNIT CHARGE SC SCH ×3 (16:04→20:14)
[2023-04-03] MEDS: HEPARIN SOD 5,000 UNIT/0.5 ML VIAL SQ SCH (20:16)
--- NOTE | 2023-04-03 21:59 | Electrocardiogram Report ---
Test Reason : Blood Pressure : / mmHG Vent. Rate : 100 BPM Atrial Rate : 100 BPM P-R Int : 192 ms QRS Dur : 074 ms QT Int : 324 ms P-R-T Axes : 052 039 056 degrees QTc Int : 417 ms Sinus rhythm with Premature atrial complexes Possible Anterior infarct (cited on or before 03-APR-2023) Abnormal ECG When compared with ECG of 23-MAR-2021 12:19, Premature atrial complexes are now Present Confirmed by Arden Stanton ([id number]) on 04/03/2023 9:58:26 PM Referred By: Confirmed By:Arden Stanton
[2023-04-03] MEDS: ACETAMINOPHEN 325 MG TAB PO PRN (23:19)
[2023-04-04 05:57] LABS: Hematocrit (blood only) 47.1 % (42.0-52.0); Mean Corpuscular Hemoglobin 28.9 pg (25.0-34.0); Mean Corpuscular Volume 85.2 fL (80.0-100.0); Mean Platelet Volume 9.5 fL (9.4-12.4); Platelet Count 190 K/uL (130-400); RDW Coefficient of Variation 12.9 % (11.5-14.5); Red Blood Count 5.53 M/uL (4.70-6.10); White Blood Count 6.95 K/ul (4.8-10.8)
[2023-04-04 06:10] LABS: BUN Creatinine Ratio 10.4 (10-20); Calcium 8.8 mg/dl (8.6-10.3); Creatinine Clr Calc Pharmacy 62.8 ml/min; Est GFR (African American) 79.7 ml/min; Est GFR (Non-African American) 68.8 ml/min; Potassium 3.7 mmol/L (3.5-5.1)
[2023-04-04 08:05] LABS: Estimated Average Glucose 177 mg/dl; Hemoglobin A1C 7.8 % (4.5-5.6)
[2023-04-04] MEDS: TAMSULOSIN HCL 0.4 MG CAP PO SCH (08:27)
[2023-04-04] MEDS: NICOTINE 21 MG/24 HR TDSY TD SCH (08:27)
[2023-04-04] MEDS: lisinopril 10 MG TAB PO SCH (08:27)
[2023-04-04] MEDS: FINASTERIDE 5 MG TAB PO SCH (08:27)
[2023-04-04] MEDS: PANTOprazole 40 MG TAB PO SCH (08:27)
[2023-04-04] MEDS: HEPARIN SOD 5,000 UNIT/0.5 ML VIAL SQ SCH ×2 (08:28→20:56)
[2023-04-04 09:49] LABS: Lyme Ab IgG w/WB Rflx Negative (Negative); Lyme Ab IgM w/WB Rflx Negative (Negative)
[2023-04-04] MEDS: INSULIN ASPART PER UNIT CHARGE SC SCH ×4 (10:27→20:52)
--- NOTE | 2023-04-04 14:03 | Hospitalist Progress Note ---
Date of Service April 04, 2023 Assessment & Plan (1) Dizziness: (2) GERD (gastroesophageal reflux disease): (3) DM II (diabetes mellitus, type II), controlled: (4) BPH (benign prostatic hyperplasia): Plan Pt is a 72-year-old male with PMHx significant for DM type II, HTN, GERD, TURP and BPH who presentedto the ER with 1 day of dizziness. Family concerned that he is no longer able to care for himself at home. Dizziness Weakness CTA head and neck, CT head negative brain MRI with no acute stroke but did note changes with mild to moderate chronic microvascular ischemic disease Echo with no acute changes Family concerned as they were not able to get him off the chair, was weak PT/OT evals- also for Sudheer maneuver to help with dizziness Fever Noted in setting of normal/low wbc Lyme negative, pending anaplasma/babesia UA without concern for infection Blood Cx with NGTD x2 CT chest concerning for 1.3cm lung nodule for which outpt followup is recommended but no signs of infection Given abdominal tenderness on exam, CT abd/pelvis pending, t bili elevated Biofire pending, c diff ordered and pending. Infectious workup as above Tachycardia Noted as high as the 120s EKG with noted sinus rhythm and PACs Likely physiologic, workup for fever as noted above Personality changes/Risky behavior Per discussion with son Zain Sauceda, family is concerned about pt's behavior. Has a gun at home and has been shooting groundhogs recently and also pointed it at [employer]. Zain notes that pt has been gambling and spending money, thousand of dollars at a time. Also has been speeding while driving. Also concerned as they were not able to get him off the chair, was weak. They are concerned about his hygiene and state that he is no longer able to care for himself at home Psychiatry consult placed Complex Case management consult placed. HTN Continue home lisinopril at this time GERD - Chronic, stable - Continue PPI DMII -Hgba1c of 7.8 - ISS with Accu-Cheks ACHS Hold home emds BPH Hx of TURP Continue Flomax and Proscar DVT PPx: heparin SQ FEN/GI: HH/diabetic diet CODE: Full code Dispo: Family requesting placement, pt/ot eval, complex CM consult placed. Admission and Anticipated Discharge Date Admission Date: April 03, 2023 Subjective Pt seen in the AM, noted that his dizziness had improved but not totally gone. Denied Hx of tick bite. Noted fevers overnight. Discussion with son Zain Sauceda later in the day. States that family is concerned about his behavior. Has a gun at home and has been shooting groundhogs recently and also pointed it at Zain's neice. Zain notes that he has been gambling and spending money, thousand of dollars at a time. Also has been speeding while driving. States that he is not himself. Also concerned as they were not able to get him off the chair, was weak. They are concerned about his hygiene. Review of Systems Review of Systems: All systems reviewed & are unremarkable except as noted in Subjective Physical Exam Physical Exam: General: Alert, no acute distress Skin: No noted rashes or bruises Psych: Appropriate mood and affect Neuro: No gross deficits HEENT: NC/AT CV: RRR Resp: Breath sounds clear bilaterally, no increased effort of breathing. Abdomen:Soft, tender diffusely, nondistended. Extremities: No edema in lower extremities bilaterally. Results & Data Results & Data Vital Signs (Past 12 Hours) Vital Signs Temp Pulse Pulse Resp BP Pulse Ox O2 Del Method 04/04/23 12:08 37.4 C 116 H 18 103/60 93 Room Air 04/04/23 08:21 37.7 C H 96 H 17 132/77 93 Room Air 04/04/23 07:16 109 H 04/04/23 05:01 108 H 04/04/23 02:14 36.9 C 85 18 124/83 94 Room Air
[2023-04-04] MEDS: ACETAMINOPHEN 325 MG TAB PO PRN (14:13)
[2023-04-04] MEDS ORDERED: OPTIRAY 320 100ml IV ONE (15:57)
--- NOTE | 2023-04-04 16:50 | CT Scan Report ---
ABDOMEN AND PELVIS CT WITH IV CONTRAST CT DOSE: 1307.38 mGy.cm HISTORY: Acute generalized abdominal pain abdominal pain TECHNIQUE: Multiaxial CT images of the abdomen and pelvis were performed following the IV administrat ion of 93 cc of Optiray, A dose lowering technique was utilized adhering to the principles of ALARA. COMPARISON STUDY: Chest CT 04/03/2023 FINDINGS: Trace pericardial effusion. Mild coronary artery calcifications. Mild bibasilar atelectasis . No free air. Unremarkable spleen, pancreas and gallbladder. Mild likely benign adrenal gland thicke elizabeth. Hepatic steatosis. Patent portal vein. There are a few cysts of the kidneys measuring up to dinesh roximately 3 cm on the right. No hydronephrosis. Prostatomegaly with urinary bladder wall thickening, trabeculation and a few small diverticula. No abdominal aortic aneurysm or lymphadenopathy. Partiall y imaged fat filled right inguinal hernia. Tiny hiatal hernia. No bowel obstruction or bowel wall thickening. Colonic diverticulosis. Normal dinesh endix. No acute fracture. IMPRESSION: 1. No acute intra-abdominal or intrapelvic abnormality. 2. No bowel obstruction or bowel wall thickening. Normal appendix. 3. Colonic diverticulosis. 4. Prostatomegaly with evidence of chronic bladder outlet obstruction. 5. Hepatic steatosis. ACT 112: Negative or not required by law. The above report was generated using voice recognition software. It may contain grammatical, syntax o r spelling errors. Electronically signed by: Fawad Barajas M.D. 04/04/2023 4:47 PM
[2023-04-04 23:58] LABS: Adenovirus PCR Not Detected (NotDetected); Bordetella parapertussis PCR Not Detected (NotDetected); Bordetella pertussis PCR Not Detected (NotDetected); Chlamydia pneumoniae PCR Not Detected (NotDetected); Coronavirus 229E PCR Not Detected (NotDetected); Coronavirus CoV-2 (COVID19)PCR Not Detected (NotDetected); Coronavirus HKU1 PCR Not Detected (NotDetected); Coronavirus NL63 PCR Not Detected (NotDetected); Coronavirus OC43PCR Not Detected (NotDetected); Human Metapneumovirus PCR Not Detected (NotDetected); Influenza A PCR Not Detected (NotDetected); Influenza B PCR Not Detected (NotDetected); Mycoplasma pneumoniae PCR Not Detected (NotDetected); Parainfluenza Virus 1 PCR Not Detected (NotDetected); Parainfluenza Virus 2 PCR Not Detected (NotDetected); Parainfluenza Virus 3 PCR Not Detected (NotDetected); Parainfluenza Virus 4 PCR Not Detected (NotDetected); Respiratory Syncytial VirusPCR Not Detected (NotDetected); Rhinovirus/Enterovirus PCR Not Detected (NotDetected)
[2023-04-05 06:59] LABS: Basophils # (auto) 0.04 K/uL (0.00-0.20); Basophils % (auto) 0.7 %; Hematocrit (blood only) 48.7 % (42.0-52.0); Hemoglobin 16.4 g/dl (14.0-18.0); Immature Granulocytes # (auto) 0.03 K/uL (0.01-0.20); Immature Granulocytes % (auto) 0.5 %; Lymphocytes # (auto) 1.08 K/uL (1.20-3.40); Lymphocytes % (auto) 19.5 %; Mean Corpuscular Hemoglobin 28.5 pg (25.0-34.0); Mean Corpuscular Hgb Conc 33.7 g/dL (32.0-36.0); Mean Corpuscular Volume 84.5 fL (80.0-100.0); Monocytes # (auto) 1.23 K/uL (0.11-0.59); Monocytes % (auto) 22.2 %; Neutrophils # (auto) 3.15 K/uL (1.40-6.50); Neutrophils % (auto) 57.1 %; Platelet Count 202 K/uL (130-400); Red Blood Count 5.76 M/uL (4.70-6.10); White Blood Count 5.53 K/ul (4.8-10.8)
[2023-04-05 07:30] LABS: Albumin Globulin Ratio 1.3 (0.9-2); Albumin Level 3.9 gm/dl (3.4-5.0); BUN Creatinine Ratio 11.8 (10-20); Bilirubin,Total 1.5 mg/dl (0.2-1.0); Calcium 8.8 mg/dl (8.6-10.3); Creatinine Clr Calc Pharmacy 60.2 ml/min; Est GFR (African American) 76.2 ml/min; Est GFR (Non-African American) 65.8 ml/min; Globulin 3.1 gm/dl (2.5-4.0); Magnesium 2.2 mg/dl (1.7-2.4); Phosphorus 3.8 mg/dl (2.5-4.9); Potassium 3.7 mmol/L (3.5-5.1)
[2023-04-05] MEDS: NICOTINE 21 MG/24 HR TDSY TD SCH (08:58)
[2023-04-05] MEDS: HEPARIN SOD 5,000 UNIT/0.5 ML VIAL SQ SCH ×2 (08:58→20:35)
[2023-04-05] MEDS: FINASTERIDE 5 MG TAB PO SCH (08:59)
[2023-04-05] MEDS: lisinopril 10 MG TAB PO SCH (08:59)
[2023-04-05] MEDS: PANTOprazole 40 MG TAB PO SCH (08:59)
[2023-04-05] MEDS: TAMSULOSIN HCL 0.4 MG CAP PO SCH (08:59)
[2023-04-05] MEDS: INSULIN ASPART PER UNIT CHARGE SC SCH ×4 (10:18→20:34)
--- NOTE | 2023-04-05 10:25 | Hospitalist Progress Note ---
Date of Service April 05, 2023 Assessment & Plan (1) Dizziness: (2) GERD (gastroesophageal reflux disease): (3) DM II (diabetes mellitus, type II), controlled: (4) BPH (benign prostatic hyperplasia): Plan Pt is a 72-year-old male with PMHx significant for DM type II, HTN, GERD, TURP and BPH who presentedto the ER with 1 day of dizziness. Family concerned that he is no longer able to care for himself at home. Dizziness Weakness CTA head and neck, CT head negative Brain MRI with no acute stroke but did note changes with mild to moderate chronic microvascular ischemic disease Echo with no acute changes Family concerned as they were not able to get him off the chair, was weak PT/OT evals- also for Sudheer maneuver to help with dizziness Fever Noted in setting of normal/low wbc, as high as 39 Lyme negative, anaplasma/babesia screens currently negative UA without concern for infection Blood Cx with NGTD x2 CT chest concerning for 1.3cm lung nodule for which outpt followup is recommended but no signs of infection Given abdominal tenderness on exam, CT abd/pelvis ordered- no acute pathology noted Biofire completely negative, c diff ordered and remains uncollected Infectious workup as above Pt currently afebrile Tachycardia Noted as high as the 120s EKG with noted sinus rhythm and PACs Likely physiologic, workup for fever as noted above HR currently wnl Personality changes/Risky behavior Per discussion with son Zain Sauceda, family is concerned about pt's behavior. Has a gun at home and has been shooting groundhogs recently and also pointed it at Zain's niece. Zain notes that pt has been gambling and spending money, thousand of dollars at a time. Also has been speeding while driving. Also concerned as they were not able to get him off the chair, was weak. They are concerned about his hygiene and state that he is no longer able to care for himself at home. Psychiatry consult placed- appreciate recs. Complex Case management consult placed. HTN Continue home lisinopril at this time GERD Chronic, stable Continue PPI DMII Hgba1c of 7.8 ISS with Accu-Cheks ACHS Hold home meds BPH Hx of TURP Continue Flomax and Proscar DVT PPx: heparin SQ FEN/GI: HH/diabetic diet CODE: Full code Dispo: Family requesting placement, pt/ot eval, complex CM consult placed, psych consult. Admission and Anticipated Discharge Date Admission Date: April 03, 2023 Subjective Pt seen in the AM. States that the dizziness has resolved. Denies other acute concerns. Had not yet been evaluated by psychiatry at the time of the exam. Review of Systems Review of Systems: All systems reviewed & are unremarkable except as noted in Subjective Physical Exam Physical Exam: General: Alert, no acute distress Skin: No noted rashes or bruises Psych: Appropriate mood and affect Neuro: No gross deficits HEENT: NC/AT CV: RRR Resp: Breath sounds clear bilaterally, no increased effort of breathing. Abdomen:Soft, tender diffusely, nondistended. Extremities: No edema in lower extremities bilaterally. Results & Data Results & Data Vital Signs (Past 12 Hours) Vital Signs Temp Pulse Pulse Resp BP Pulse Ox O2 Del Method 04/05/23 07:47 37.1 C 83 18 120/78 93 Room Air 04/05/23 07:28 Room Air 04/05/23 02:23 36.7 C 79 18 106/70 95 Room Air 04/05/23 01:23 86 04/04/23 23:30 37.1 C 86 16 106/66 93 Room Air
[2023-04-05] MEDS: CALCIUM CITRATE 950 MG TAB PO SCH (18:04)
[2023-04-06 07:21] LABS: Basophils # (auto) 0.05 K/uL (0.00-0.20); Eosinophils # (auto) 0.01 K/uL (0.00-0.50); Eosinophils % (auto) 0.2 %; Hematocrit (blood only) 47.6 % (42.0-52.0); Immature Granulocytes # (auto) 0.02 K/uL (0.01-0.20); Immature Granulocytes % (auto) 0.4 %; Lymphocytes # (auto) 1.55 K/uL (1.20-3.40); Lymphocytes % (auto) 30.4 %; Mean Corpuscular Hemoglobin 28.7 pg (25.0-34.0); Mean Corpuscular Hgb Conc 33.6 g/dL (32.0-36.0); Mean Corpuscular Volume 85.3 fL (80.0-100.0); Mean Platelet Volume 9.9 fL (9.4-12.4); Monocytes # (auto) 0.94 K/uL (0.11-0.59); Monocytes % (auto) 18.4 %; Neutrophils # (auto) 2.53 K/uL (1.40-6.50); Neutrophils % (auto) 49.6 %; Platelet Count 230 K/uL (130-400); RDW Coefficient of Variation 13.1 % (11.5-14.5); RDW Standard Deviation 40.6 fL (36.4-46.3); Red Blood Count 5.58 M/uL (4.70-6.10)
[2023-04-06 07:41] LABS: Albumin Globulin Ratio 1.2 (0.9-2); Albumin Level 3.7 gm/dl (3.4-5.0); BUN Creatinine Ratio 17.8 (10-20); Bilirubin,Total 1.2 mg/dl (0.2-1.0); Calcium 8.8 mg/dl (8.6-10.3); Creatinine Clr Calc Pharmacy 61.7 ml/min; Est GFR (African American) 78.8 ml/min; Globulin 3.2 gm/dl (2.5-4.0); Magnesium 2.4 mg/dl (1.7-2.4); Phosphorus 3.9 mg/dl (2.5-4.9); Potassium 3.8 mmol/L (3.5-5.1); Total Protein 6.9 gm/dl (6.0-8.3)
[2023-04-06] MEDS: PANTOprazole 40 MG TAB PO SCH (07:54)
[2023-04-06] MEDS: lisinopril 10 MG TAB PO SCH (07:54)
[2023-04-06] MEDS: FINASTERIDE 5 MG TAB PO SCH (07:55)
[2023-04-06] MEDS: CALCIUM CITRATE 950 MG TAB PO SCH ×2 (07:55→13:02)
[2023-04-06] MEDS: NICOTINE 21 MG/24 HR TDSY TD SCH (07:56)
[2023-04-06] MEDS: HEPARIN SOD 5,000 UNIT/0.5 ML VIAL SQ SCH (07:57)
[2023-04-06] MEDS: TAMSULOSIN HCL 0.4 MG CAP PO SCH (09:16)
[2023-04-06] MEDS: INSULIN ASPART PER UNIT CHARGE SC SCH ×2 (09:16→13:02)
--- NOTE | 2023-04-06 10:49 | Psychiatric Consultation ---
Date of Consultation April 06, 2023 Impression / Recommendations Impression Diagnostically consistent with unspecified memory changes with MOCA score showing mild cognitive impairment as well as brain MRI changes showing chronic microvascular ischemic disease with recent personality changes/more reckless behaviors per family collateral. This could certainly represent the start of a major neurocognitive disorder with broad differential including FTD vs vascular dementia vs Alzheimer's dementia picture. Recommend outpatient neurology referral with neurocognitive workup. At this time there is no evidence for any type of primary psychiatric condition leading to recent report of behavior changes/cognition. No evidence currently for dementia with behavioral disturbance given good behavioral control while in the hospital. His acute risk of harm to self is low given denial of SI and acute risk of harm to others is low given denial of HI. He does not meet criteria for any type of involuntary psychiatric treatment. There is no current evidence that he lacks decision making capacity to return home as he can speak to how he meets his self-care needs and denies any recent unsafe behaviors. If new concerns arise, as often if someone is starting to develop brain changes associated with a major neurocognitive disorder they have limited insight into these changes, then recommend family involve police/emergency services/his outpatient providers/office of aging or return to the ED. I'd recommend family remove guns from the home and that he not drive. Ultimately it will be up to him if he chooses to allow this as we have no reason/nor ability at this time to forceable remove his guns or license based on his current presentation. I'd recommend hospitalist/case management encourage family to remove car keys and his guns if they have ongoing concerns or to contact police if acute safety concerns arise regarding his firearm access. Overall, I spent a total of 80 minutes with this case including review of chart records, review of labwork, review of head imaging, direct evaluation of the patient at bedside, counseling the patient, discussion of the patient with the Nurse and with the hospitalist provider, discussion with the psychiatric liason during clinical rounds, review of collateral historian information from the family, review of MOCA cognitive assessment, risk assessment and documentation in the electronic health record. (1) Cognitive and behavioral changes: Plan -Outpatient neurology referral with neurocognitive workup -Suhas to hospitalist team and PT/OT regarding safety at home with ambulation and meeting basic care needs -Recommend that he not drive until further neurocognitive workup/neurology input -Recommend that family remove guns from the home however this cannot be forced at this time given an individual's right to have guns; he is not allowing an PUMA for psych liason/psychiatry to communicate this recommendation to his family, recommended to hospitalist provider that this be discussed with family. If family has acute concerns in the future that he is using his guns inappropriately such as threatening to harm himself or others recommend they contact police immediately as they may have more legal rights to remove his guns if needed Psych History Identifying Data 72 yo man with no apparent psychiatric history, history of DM type II, HTN, GERD, TURP and BPH admitted medically for lightheadedness and family's concerns about his ability to care for himself independently at home. Psychiatry consulte d for "personality changes and erratic behavior" per family. Chief Complaint "I just want to go home". History of Present Illness Scout was brought to the hospital by his son due to concern for dizziness and inability to care for himself at home in setting of memory changes. Per admission H&P son reported: "He typically uses a cane and a walker at baseline however has been significantly unsteady at home. He lives by himself. Family is concerned that he would be unsafe going home. Son who is at bedside also reports that his sister obtains her information from the patient's girlfriend who lives with him, and there is concerned that he has had issues with driving, speeding upwards of 100 mph without realizing it at times, does not know all of his medications, has multiple bottles of pills at home, reports that he has not taken Jardiance however it was prescribed in December earlier this year." Hospitalist provider noted additional collateral in her note from 04/04/2023 that: "Per discussion with son Zain Sauceda, family is concerned about pt's behavior. Has a gun at home and has been shooting groundhogs recently and also pointed it at Zain's neice. Zain notes that pt has been gambling and spending money, thousand of dollars at a time. Also has been speeding while driving. Also concerned as they were not able to get him off the chair, was weak. They are concerned about his hygiene and state that he is no longer able to care for himself at home". Patient was assessed by psychiatric liason yesterday who completed a MOCA assessment on which he scored a 21/30 (additional point given education <12th grade). Additional collateral per psych liason note on 04/05/2023: "Met with patient for consult service/initial psych assessment. Patient resting in bed, easily wakens and is pleasant/cooperative. Patient lives alone, family is concerned regarding his recent behavior/personality change, including shooting groundhogs and driving erratically/speeding. Patient is A&Ox3, reports he came here because he was dizzy but would like to leave as soon as possible. He blames his son Aquiles and reports, "I'm taking him out of my will". Patient participated in a MOCA assessment, scored a 21/30 (mild cognitive impairment), concerning that he was unable to draw a clock with correct time. Of note, patient was able to get all orientation questions correct by looking at the board in the room. He made an appoint to say, "I have a cheat sheet right there". Patient denies any history of psychiatric illness including depression and anxiety. He does not currently feel depressed or anxious, denies SI or thoughts to . He admits to shooting groundhogs "but everybody does that. What's the big deal"? He reports having 2 pistols, 1 shotgun and 1 rifle; he denies being a taya. Nursing staff reported patient showed his drivers license and his firearm carry permit and stated, "so I can drive by and shoot ya". Patient declines to have staff call family at this time. Will continue encourage patient to allow staff to safety plan/secure guns prior to discharge." In meeting Scout today he reports his mood is "good" but is eager to be discharged home. States he feels his sons over-reacting by bringing him to the hospital stating that his developed dizziness and it turned out to be cancer and he thinks that is why that got so concerned by his dizziness but he reports "I'm fine". He is fully oriented and states he feels one of his sons, Demetris, is an excellent support. He doesn't recall making any type of statement to nursing about shooting anyone and denies that he ever would have pointed a gun at his niece. States he uses his guns only to shoot groundhogs and adamantly denies any HI nor any history of violence or aggression toward others. He denies any recent memory issues or concerns about his reaction time or ability to drive. Denies any recent motor vehicle accidents. He denies any SI nor any symptoms of psychosis/amanda in the past nor currently. Reviewed his performance on the MOCA and concerns that this could mean he is starting to develop a major neurocognitive disorder vs mild neurocognitive changes associated with aging. Discussed recommendation that he not drive until further neurological testing/workup is done which he states agreement to, feels his son Demetris could help with groceries or bringing him places. He is less motivated to give up his guns stating he likes having them to use for the groundhogs. Allergies Allergy/AdvReac Type Severity Reaction Status Date / Time No Known Allergies Allergy Unverified 03/23/21 13:05 Home Medications Medication Instructions Recorded Confirmed Type finasteride 5 mg tablet (Proscar) 5 mg PO QAM 03/23/21 04/03/23 History lisinopril 5 mg tablet (Zestril) 10 mg PO QAM 03/23/21 04/03/23 History metformin 750 mg tablet,extended 1,500 mg PO QAM 03/23/21 04/03/23 History release 24 hr tamsulosin 0.4 mg capsule (Flomax) 0.4 mg PO QAM 03/23/21 04/03/23 History Nexium 10 mg PO QAM 04/03/23 04/03/23 History empagliflozin 10 mg tablet 10 mg PO QAM 04/03/23 04/03/23 History (Jardiance) glipizide 5 mg tablet, extended 5 mg PO QAM 04/03/23 04/03/23 History release 24 hr Patient History Medical History BPH (benign prostatic hyperplasia) DM II (diabetes mellitus, type II), controlled GERD (gastroesophageal reflux disease) Hypertension Indwelling Daniels catheter present No pertinent family history Surgical History Hx of transurethral resection of prostate Family History Mother Cancer Social History Smoking Status: Never smoker Tobacco Type: Smokeless Tobacco (Dip or Chew) Do You Dip or Chew Tobacco: Yes; Hx Alcohol Use: No Hx Substance Use: No Preferred Language: Japanese Communication Ability: Effective Break Up Worker Required: No Beliefs That Will Affect Care: None Current Living Situation: Alone Feels Safe at Home: Yes Safety Concerns: Feels Safe At This Time Assistive Devices: Cane and Wheelchair Physical Exam Psychiatric: Orientation: alert and oriented x 3 Apperance: appropriately dressed and appropriately groomed Eye Contact: good eye contact Motor Behavior: no abnormal motor movements Speech: normal rate/rhythm/volume of speech Affect: euthymic affect (laughs at times, sometimes in poor taste) Mood: no depressed mood, no anxious mood and no irritable mood Thought Process: goal directed thought process Thought Content: reality based without delusions Suicidal Thoughts: denies suicidal thoughts Homicidal Thoughts: denies homicidal thoughts Hallucinations: no auditory hallucinations and no visual hallucinations Cognition: remote memory grossly intact, attention grossly intact and language grossly intact; + recent memory not intact Insight: + limited insight Judgment: + limited judgement Vital Signs (Past 24 Hours): Last Vital Signs Temp 37 C 04/06/23 07:14 Pulse 80 04/06/23 07:14 Resp 16 04/06/23 07:14 BP 111/68 04/06/23 07:14 Pulse Ox 95 04/06/23 07:14 O2 Del Method Room Air 04/06/23 07:14 Review of Systems All systems reviewed & are unremarkable except as noted in HPI & below Results & Data (PSY) Diagnostic Findings brain MRI on 04/03/2023 with radiologist read: "No restricted diffusion. Midline structures appear unremarkable. Degenerative changes of the cervical spine. No acute intracranial hemorrhage, midline shift, abnormal extra-axial collection, hydrocephalus or intra-axial mass. No pathologic blooming artifact. Delusional changes with unchanged ventriculomegaly, likely on ex vacuo basis. Mild to moderate T2/FLAIR hyperintense foci throughout the white matter, likely secondary to chronic microvascular ischemic disease. Cerebral venous sinuses and major arterial flow voids appear patent. Skull, orbits and soft tissues are unremarkable. IMPRESSION: 1. No acute intracranial abnormality. No acute or subacute infarct. 2. Involutional changes with mild to moderate chronic microvascular ischemic disease." Medications Administered Acetaminophen (Acetaminophen 325 Mg Tab) 650 mg PO Q4H PRN PRN Reason: Moderate Pain (Scale 4, 5, 6) Stop: 05/03/23 14:16 Last Admin: 04/04/23 14:13 Dose: 650 mg Documented By: Admin: 04/03/23 23:19 Dose: 650 mg Documented By: JOSÉ MIGUEL Calcium Citrate (Calcium Citrate 950 Mg Tab) 950 mg PO PC IGOR Stop: 05/05/23 17:59 Last Admin: 04/06/23 07:55 Dose: 950 mg Documented By: Admin: 04/05/23 18:04 Dose: 950 mg Documented By: STEVE Finasteride (Finasteride 5 Mg Tab) 5 mg PO QAM [facility] Stop: 05/03/23 14:16 Last Admin: 04/06/23 07:55 Dose: 5 mg Documented By: Admin: 04/05/23 08:59 Dose: 5 mg Documented By: Admin: 04/04/23 08:27 Dose: 5 mg Documented By: Admin: 04/03/23 15:49 Dose: 5 mg Documented By: VIVIEN Heparin Sodium (Porcine) (Heparin Sod 5,000 Unit/0.5 Ml Vial) 5,000 units SQ Q12 IGOR Stop: 05/03/23 20:59 Last Admin: 04/06/23 07:57 Dose: 5,000 units Documented By: Admin: 04/05/23 20:35 Dose: 5,000 units Documented By: JOSÉ MIGUEL Admin: 04/05/23 08:58 Dose: Not Given Documented By: Admin: 04/04/23 20:56 Dose: 5,000 units Documented By: JOSÉ MIGUEL Admin: 04/04/23 08:28 Dose: Not Given Documented By: Admin: 04/03/23 20:16 Dose: 5,000 units Documented By: JOSÉ MIGUEL Insulin Aspart (Insulin Aspart Per Unit Charge) 0 units SC ACHS IGOR Stop: 05/03/23 14:16 Last Admin: 04/06/23 09:16 Dose: 4 units Documented By: CELESTINO Co-signed By: ROBINSON Admin: 04/05/23 20:34 Dose: Not Given Documented By: JOSÉ MIGUEL Admin: 04/05/23 18:04 Dose: 3 units Documented By: STEVE Co-signed By: SLAVA Admin: 04/05/23 13:36 Dose: 2 units Documented By: STEVE Co-signed By: CÉSAR Admin: 04/05/23 10:18 Dose: 3 units Documented By: STEVE Co-signed By: YVON Admin: 04/04/23 20:52 Dose: Not Given Documented By: JOSÉ MIGUEL Admin: 04/04/23 18:32 Dose: 4 units Documented By: STEVE Co-signed By: SAMANTHA Admin: 04/04/23 14:17 Dose: 1 units Documented By: STEVE Co-signed By: CAR Admin: 04/04/23 10:27 Dose: 4 units Documented By: STEVE Co-signed By: YVON Admin: 04/03/23 20:14 Dose: Not Given Documented By: JOSÉ MIGUEL Admin: 04/03/23 18:19 Dose: Not Given Documented By: Admin: 04/03/23 16:04 Dose: Not Given Documented By: ABHIJIT Co-signed By: LAYLA [facility]inopril (L[facility]opril 10 Mg Tab) [facility] [place]: 05/04/23 08:59 Last Admin: 04/06/23 07:54 Dose: 10 mg Documented By: Admin: 04/05/23 08:59 Dose: 10 mg Documented By: Admin: 04/04/23 08:27 Dose: 10 mg Documented By: STEVE Miscellaneous (Remove Nicoderm Patch) 1 each N/A DAILY@0859 [facility] Stop: 05/04/23 08:58 Last Admin: 04/06/23 07:56 Dose: Not Given Documented By: Admin: 04/05/23 08:57 Dose: Not Given Documented By: Admin: 04/04/23 08:26 Dose: 1 each Documented By: STEVE Nicotine (Nicotine 21 Mg/24 Hr Tdsy) 21 [facility] TD [facility] [place]: 05/03/23 14:16 Last Admin: 04/06/23 07:56 Dose: Not Given Documented By: Admin: 04/05/23 08:58 Dose: Not Given Documented By: Admin: 04/04/23 08:27 Dose: Not Given Documented By: Admin: 04/03/23 15:51 Dose: Not Given Documented By: LUISG Pantoprazole Sodium (Pantoprazole 40 Mg Tab) 40 [facility] [place] Stop: 05/04/23 08:59 Last Admin: 04/06/23 07:54 Dose: 40 mg Documented By: Admin: 04/05/23 08:59 Dose: 40 mg Documented By: Admin: 04/04/23 08:27 Dose: 40 mg Documented By: STEVE Tamsulosin HCl (Tamsulosin Hcl 0.4 Mg Cap) 0.4 mg PO [facility] [place]: 05/03/23 14:29 Last Admin: 04/06/23 09:16 Dose: 0.4 mg Documented By: Admin: 04/05/23 08:59 Dose: 0.4 mg Documented By: Admin: 04/04/23 08:27 Dose: 0.4 mg Documented By: Admin: 04/03/23 15:50 Dose: 0.4 mg Documented By: VIVIEN Coding Level of Care Code 91592 IN/OBS CONSULT LVL 4,60M Diagnoses Cognitive and behavioral changes R41.89; R46.89
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
[2023-04-08 23:47] LABS: Babesia microti DNA Not Detected (Not Detected)
== END 2023-04-06 17:05 | disposition home or self-care (01) | DRG 149 ==
LOC: ED 04:02 → SUATTDRO 10:37 → EDINP 10:37 → 2N 14:00